=== PATIENT | female | born 1935 | race Caucasian/White ===

== ENCOUNTER 2020-07-14 17:28 | Emergency (ER) | payer OTHER ==
[~2020-07-14] VITALS: Ht 165.1 cm; Wt 97.5 kg
[~2020-07-14 17:28] MED LIST: ASPIRIN PO; ATOR10TA PO; BIOTIN PO; CALCIUM PO; DULO60CA45 PO; FENT1PAT3 TD; GABA-588 PO; HYDR-4354 PO; HYDR25TA4 PO; LEVO150T8 PO; MELO-105 PO; NEURONTIN PO; SPIR25TA6 PO; VITAMIN B-12 PO; ZINC PO
--- NOTE | 2020-07-14 17:38 | NUR ---
PT IS IN ROOM #1B. DR KELLY EVALUATED THE PT.
--- NOTE | 2020-07-14 17:40 | NUR ---
No information available about current home medications, pt unable to provide any information.
--- NOTE | 2020-07-14 18:55 | NUR ---
REPORT GIVEN TO TECHNICAL ACCOUNT MANAGER CHRISTINA DE LEON.
--- NOTE | 2020-07-14 19:06 | NUR ---
Noa (caregiver) arrived to grape picker pt.
--- NOTE | 2020-07-14 19:21 | NUR ---
Patient discharged to home in stable condition. Written and verbal after care instructions given. Patient verbalizes understanding of instructions. Stressed follow up or return to ER for worsening s/s. Fall precautions in place. Belongings (necklaces, hearing aids) with caregiver. Assisted pt. with transfer from wheelchair to car. No falls, pt. stable.
[2020-07-14 20:49] VITALS: BP 122/65
== END 2020-07-14 19:12 | disposition home or self-care (01) ==
LOC: ER 17:31
DX: Z04.3 Encounter for examination and observation following other accident (principal); G89.29 Other chronic pain; M25.562 Pain in left knee; M25.561 Pain in right knee; Z89.222 Acquired absence of left upper limb above elbow; F03.90 Unspecified dementia, unspecified severity, without behavioral disturbance, psychotic disturbance, mood disturbance, and anxiety; I10 Essential (primary) hypertension; E03.9 Hypothyroidism, unspecified; Z79.82 Long term (current) use of aspirin; Z79.890 Hormone replacement therapy
CPT/HCPCS: 70450; 71045; 72125; 72170; A4663